=== PATIENT | male | born 1960 | race African-American/Black ===

== ENCOUNTER 2017-03-19 13:58 | Inpatient (IN) | payer OTHER ==
[2017-03-19 15:09] VITALS: BMI 19.8
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
[2017-03-19] MEDS ORDERED: MAG HYDROX/AL HYDROX/SIMETH 30 ML UNIT-DOSE CUP PO PRN (15:57)
[2017-03-19] MEDS ORDERED: ACETAMINOPHEN 325 MG TABLET (FP) PO PRN (15:57)
[2017-03-19] MEDS ORDERED: LOPERAMIDE HCL 2 MG CAPSULE PO PRN (15:57)
[2017-03-19] MEDS ORDERED: diphenhydrAMINE HCL 50 MG CAPSULE PO PRN (15:57)
[2017-03-19] MEDS ORDERED: IBUPROFEN 400 MG TABLET (FP) PO PRN (15:57)
[2017-03-19] MEDS ORDERED: hydrOXYzine PAMOATE 25 MG CAPSULE (FP) PO PRN (15:57)
[2017-03-19] MEDS ORDERED: MENTHOL/PHENOL 1 EACH UD MM PRN (15:57)
[2017-03-19] MEDS ORDERED: guaiFENesin/D-METHORPHAN HB 10 ML UNIT-DOSE CUPS PO PRN (15:57)
[2017-03-19] MEDS ORDERED: chlordiazePOXIDE HCL 25 MG CAPSULE PO PRN (15:57)
[2017-03-19] MEDS ORDERED: P-EPHED 60MG/TRIPROLIDI 2.5MG TABLET PO PRN (15:57)
[2017-03-19] MEDS ORDERED: MAGNESIUM HYDROX 2400MG/30ML ORAL SUSPENSION 30 ML CUP PO PRN (15:57)
[2017-03-19] MEDS ORDERED: NICOTINE POLACRILEX 2 MG GUM BC PRN (15:57)
[2017-03-19] MEDS ORDERED: MAGNESIUM CITRATE 300 ML BOTTLE PO PRN (15:57)
[2017-03-19] MEDS: chlordiazePOXIDE HCL 25 MG CAPSULE PO SCH (21:01)
[2017-03-20] MEDS: THIAMINE HCL 100 MG TABLET (FP) PO SCH (00:16)
[2017-03-20] MEDS: chlordiazePOXIDE HCL 25 MG CAPSULE PO SCH ×3 (00:16→10:48)
[2017-03-20 07:52] LABS: URINE APPEARANCE TURBID; URINE BILIRUBIN NEGATIVE (NEGATIVE); URINE BLOOD NEGATIVE (NEGATIVE); URINE COLOR AMBER; URINE GLUCOSE (UA) NEGATIVE (NEGATIVE); URINE KETONE NEGATIVE (NEGATIVE); URINE LEUK ESTERASE NEGATIVE (NEGATIVE); URINE NITRITE NEGATIVE (NEGATIVE); URINE PROTEIN NEGATIVE (NEGATIVE); URINE UROBILINOGEN NEGATIVE E.U./dl (0.2-1.0)
[2017-03-20 09:46] LABS: MCH 30.3 pg (25.7-33.7); MCHC 33.5 g/dl (32.0-35.9); MEAN CELL VOLUME 90.6 fl (80-96); MEAN PLT VOLUME 8.7 fl (7.5-11.1); PLATELET COUNT 214 K/MM3 (134-434); RDW 13.6 % (11.9-15.9); WHITE BLOOD COUNT 5.9 K/mm3 (4.0-10.0)
[2017-03-20 09:54] LABS: ALBUMIN 3.7 g/dl (3.4-5.0); ALK PHOS 112 U/L (45-117); ANION GAP 6 (8-16); BILIRUBIN,TOTAL 0.4 mg/dL (0.2-1.0); CALCIUM 8.5 mg/dL (8.5-10.1); CO2 33 mmol/L (21-32); CREATININE 1.1 mg/dL (0.7-1.3); GLUCOSE,RANDOM 95 mg/dL (74-106); SGOT/AST 27 U/L (15-37); SGPT/ALT 40 U/L (12-78)
[2017-03-20] MEDS: PRENATAL VITAMINS W/ FOLIC ACID TABLET (FP) PO SCH (10:47)
[2017-03-20] MEDS: NICOTINE 7 MG/24 HOURS TOPICAL PATCH TD SCH (10:47)
--- NOTE | 2017-03-20 12:35 | PN ---
S CIWA - CIWA Score Nausea/Vomitin Muscle Tremors: 2 Anxiety: 3 Agitation: 2 Paroxysmal Sweats: 3 Orientation: 0-Oriented Tacttile Disturbances: 1-Very Mild Itch/Numbness Auditory Disturbances: 0-None Visual Disturbances: 0-None Headache: 0-None Present CIWA-Ar Total Score: 13 S Progress Note (SOAP) Subjective: interrupted sleep, sweats, tired Objective: 03/20/17 12:34 Vital Signs Temperature 97.7 F 03/20/17 06:12 Pulse Rate 57 L 03/20/17 06:12 Respiratory Rate 18 03/20/17 06:12 Blood Pressure 108/65 03/20/17 06:12 O2 Sat by Pulse Oximetry (%) Laboratory Tests 03/19/17 03/20/17 03/20/17 20:30 06:00 06:00 WBC 5.9 RBC 4.09 Hgb 12.4 D Hct 37.1 D MCV 90.6 MCHC 33.5 RDW 13.6 Plt Count 214 MPV 8.7 Sodium 143 Potassium 3.5 D Chloride 104 Carbon Dioxide 33 H Anion Gap 6 L BUN 14 D Creatinine 1.1 Creat Clearance w eGFR > 60 Random Glucose 95 Calcium 8.5 Total Bilirubin 0.4 AST 27 D ALT 40 D Alkaline Phosphatase 112 Total Protein 7.0 Albumin 3.7 Urine Color Olivia Urine Appearance Turbid Urine pH 5.0 D Urine Protein Negative Urine Glucose (UA) Negative Urine Ketones Negative Urine Blood Negative Urine Nitrite Negative Urine Bilirubin Negative Urine Urobilinogen Negative Ur Leukocyte Esterase Negative RPR Titer 03/20/17 06:00 WBC RBC Hgb Hct MCV MCHC RDW Plt Count MPV Sodium Potassium Chloride Carbon Dioxide Anion Gap BUN Creatinine Creat Clearance w eGFR Random Glucose Calcium Total Bilirubin AST ALT Alkaline Phosphatase Total Protein Albumin Urine Color Urine Appearance Urine pH Urine Protein Urine Glucose (UA) Urine Ketones Urine Blood Urine Nitrite Urine Bilirubin Urine Urobilinogen Ur Leukocyte Esterase RPR Titer Nonreactive pt aox3 in nad lying in bed Assessment: 03/20/17 12:35 withdrawal sx's Plan: cont. detox increase fluids
[2017-03-21] MEDS: chlordiazePOXIDE HCL 25 MG CAPSULE PO SCH ×3 (00:04→10:50)
[2017-03-21] MEDS: THIAMINE HCL 100 MG TABLET (FP) PO SCH ×2 (00:04→22:39)
--- NOTE | 2017-03-21 09:34 | PN ---
S CIWA - CIWA Score Nausea/Vomitin-Mild Nausea/No Vomiting Muscle Tremors: 1-None Visible, but [place]y Anxiety: 1-Mildly Anxious Agitation: 2 Paroxysmal Sweats: 2 Orientation: 0-Oriented Tacttile Disturbances: 1-Very Mild Itch/Numbness Auditory Disturbances: 0-None Visual Disturbances: 0-None Headache: 0-None Present CIWA-Ar Total Score: 8 BHS Progress Note (SOAP) Subjective: cold sweats , refusing meds Objective: 03/21/17 09:34 Vital Signs Temperature 97.7 F 03/21/17 06:00 Pulse Rate 53 L 03/21/17 06:00 Respiratory Rate 16 03/21/17 06:00 Blood Pressure 95/53 03/21/17 06:00 O2 Sat by Pulse Oximetry (%) Laboratory Tests 03/19/17 03/20/17 03/20/17 20:30 06:00 06:00 WBC 5.9 RBC 4.09 Hgb 12.4 D Hct 37.1 D MCV 90.6 MCHC 33.5 RDW 13.6 Plt Count 214 MPV 8.7 Sodium 143 Potassium 3.5 D Chloride 104 Carbon Dioxide 33 H Anion Gap 6 L BUN 14 D Creatinine 1.1 Creat Clearance w eGFR > 60 Random Glucose 95 Calcium 8.5 Total Bilirubin 0.4 AST 27 D ALT 40 D Alkaline Phosphatase 112 Total Protein 7.0 Albumin 3.7 Urine Color Olivia Urine Appearance Turbid Urine pH 5.0 D Ur Specific [place] 1.025 Urine Protein Negative Urine Glucose (UA) Negative Urine Ketones Negative Urine Blood Negative Urine Nitrite Negative Urine Bilirubin Negative Urine Urobilinogen Negative Ur Leukocyte Esterase Negative RPR Titer 03/20/17 06:00 WBC RBC Hgb Hct MCV MCHC RDW Plt Count MPV Sodium Potassium Chloride Carbon Dioxide Anion Gap BUN Creatinine Creat Clearance w eGFR Random Glucose Calcium Total Bilirubin AST ALT Alkaline Phosphatase Total Protein Albumin Urine Color Urine Appearance Urine pH Ur Specific [place] Urine Protein Urine Glucose (UA) Urine Ketones Urine Blood Urine Nitrite Urine Bilirubin Urine Urobilinogen Ur Leukocyte Esterase RPR Titer Nonreactive 03/21/17 13:06 pt aox3 in nad , lying in bed Assessment: 03/21/17 09:34 withdrawal sx;s refusing med s- informed that if he did not take meds he could develope withdraw sx;s or sz's 03/21/17 13:07 Plan: cont. detox increase fluids take meds
[2017-03-21] MEDS: PRENATAL VITAMINS W/ FOLIC ACID TABLET (FP) PO SCH (10:50)
[2017-03-21] MEDS: NICOTINE 7 MG/24 HOURS TOPICAL PATCH TD SCH (10:51)
--- NOTE | 2017-03-21 15:53 | EKG ---
Test Reason : Blood Pressure : / mmHG Vent. Rate : 053 BPM Atrial Rate : 053 BPM P-R Int : 154 ms QRS Dur : 080 ms QT Int : 474 ms P-R-T Axes : 072 062 070 degrees QTc Int : 444 ms SINUS BRADYCARDIA OTHERWISE NORMAL ECG NO PREVIOUS ECGS AVAILABLE Confirmed by CARLOS MANUEL REYNOSO MD ([id number]) on 03/21/2017 3:53:00 PM Referred By: Confirmed By:CARLOS MANUEL REYNOSO MD
[2017-03-21] MEDS: chlordiazePOXIDE 5 MG CAPSULE PO SCH ×2 (17:38→22:38)
[2017-03-22] MEDS: chlordiazePOXIDE 5 MG CAPSULE PO SCH ×2 (06:38→10:36)
[2017-03-22] MEDS: NICOTINE 7 MG/24 HOURS TOPICAL PATCH TD SCH (10:36)
[2017-03-22] MEDS: PRENATAL VITAMINS W/ FOLIC ACID TABLET (FP) PO SCH (10:36)
--- NOTE | 2017-03-22 15:46 | PN ---
BHS Progress Note (SOAP) Subjective: Sweating,interrupted sleep,restless Objective: 03/22/17 15:45 Vital Signs - 8 hr 03/22/17 03/22/17 10:00 14:00 Temperature 98.2 F 97.9 F Pulse Rate 63 72 Respiratory 20 20 Rate Blood Pressure 90/56 100/66 Laboratory Tests 03/19/17 03/20/17 03/20/17 20:30 06:00 06:00 WBC 5.9 RBC 4.09 Hgb 12.4 D Hct 37.1 D MCV 90.6 MCHC 33.5 RDW 13.6 Plt Count 214 MPV 8.7 Sodium 143 Potassium 3.5 D Chloride 104 Carbon Dioxide 33 H Anion Gap 6 L BUN 14 D Creatinine 1.1 Creat Clearance w eGFR > 60 Random Glucose 95 Calcium 8.5 Total Bilirubin 0.4 AST 27 D ALT 40 D Alkaline Phosphatase 112 Total Protein 7.0 Albumin 3.7 Urine Color Olivia Urine Appearance Turbid Urine pH 5.0 D Ur Specific [place] 1.025 Urine Protein Negative Urine Glucose (UA) Negative Urine Ketones Negative Urine Blood Negative Urine Nitrite Negative Urine Bilirubin Negative Urine Urobilinogen Negative Ur Leukocyte Esterase Negative RPR Titer 03/20/17 06:00 WBC RBC Hgb Hct MCV MCHC RDW Plt Count MPV Sodium Potassium Chloride Carbon Dioxide Anion Gap BUN Creatinine Creat Clearance w eGFR Random Glucose Calcium Total Bilirubin AST ALT Alkaline Phosphatase Total Protein Albumin Urine Color Urine Appearance Urine pH Ur Specific [place] Urine Protein Urine Glucose (UA) Urine Ketones Urine Blood Urine Nitrite Urine Bilirubin Urine Urobilinogen Ur Leukocyte Esterase RPR Titer Nonreactive labs noted Assessment: 03/22/17 15:45 Withdrawal sx. Plan: Continue detox
[2017-03-22] MEDS: chlordiazePOXIDE HCL 10 MG CAPSULE PO SCH ×2 (18:32→22:13)
[2017-03-22] MEDS: THIAMINE HCL 100 MG TABLET (FP) PO SCH (22:15)
[2017-03-23] MEDS: chlordiazePOXIDE HCL 10 MG CAPSULE PO SCH (05:15)
[2017-03-23 06:12] VITALS: TEMP 98.1
[2017-03-23 06:13] VITALS: BP 125/70; PULSE 54
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
[2017-03-23] MEDS: NICOTINE 7 MG/24 HOURS TOPICAL PATCH TD SCH (09:24)
[2017-03-23] MEDS: PRENATAL VITAMINS W/ FOLIC ACID TABLET (FP) PO SCH (09:24)
== END 2017-03-23 09:45 | disposition home or self-care (01) | DRG 774 ==
LOC: YASAS 13:58 → Y6N 16:22
PROVIDERS: ADMIT Internal Medicine; ATTEND Internal Medicine
PROC: HZ2ZZZZ Detoxification Services for Substance Abuse Treatment (ICD-10-PCS; principal; 2017-03-23)
DX: F10.230 Alcohol dependence with withdrawal, uncomplicated (principal); F14.20 Cocaine dependence, uncomplicated; F17.210 Nicotine dependence, cigarettes, uncomplicated; R63.4 Abnormal weight loss; Z68.1 Body mass index [BMI] 19.9 or less, adult
CPT/HCPCS: 36415; 80053; 81003; 85027; 86593; 93005; 93010

== ENCOUNTER 2019-06-18 10:49 | Inpatient (IN) | payer OTHER ==
[2019-06-18 11:18] VITALS: BMI 19.3
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
[2019-06-18] MEDS ORDERED: MELATONIN 5 MG TABLETS PO PRN (13:33)
[2019-06-18] MEDS ORDERED: MENTHOL/PHENOL 1 EACH UD MM PRN (13:33)
[2019-06-18] MEDS ORDERED: NICOTINE POLACRILEX 2 MG GUM BUC PRN (13:33)
[2019-06-18] MEDS ORDERED: MAGNESIUM CITRATE 300 ML BOTTLE PO PRN (13:33)
[2019-06-18] MEDS ORDERED: MAG HYDROX/AL HYDROX/SIMETH 30 ML UNIT-DOSE CUP PO PRN (13:33)
[2019-06-18] MEDS ORDERED: BISMUTH SUBSALICYLATE 524 MG/30 ML UD PO PRN (13:33)
[2019-06-18] MEDS ORDERED: MAGNESIUM HYDROX 2400MG/30ML ORAL SUSPENSION 30 ML CUP PO PRN (13:33)
[2019-06-18] MEDS ORDERED: hydrOXYzine PAMOATE 25 MG CAPSULE (FP) PO PRN (13:33)
[2019-06-18] MEDS ORDERED: ACETAMINOPHEN 325 MG TABLET (FP) PO PRN ×2 (13:33)
[2019-06-18] MEDS ORDERED: chlordiazePOXIDE HCL 10 MG CAPSULE PO PRN (13:33)
[2019-06-18] MEDS ORDERED: METHOCARBAMOL 500 MG TABLET PO PRN (13:33)
[2019-06-18] MEDS ORDERED: IBUPROFEN 400 MG TABLET (FP) PO PRN (13:33)
[2019-06-18] MEDS: chlordiazePOXIDE HCL 25 MG CAPSULE PO SCH ×2 (16:15→23:03)
[2019-06-18 18:12] LABS: HEMATOCRIT 40.9 % (35.4-49); HEMOGLOBIN 13.4 GM/dL (11.7-16.9); MCH 30.1 pg (25.7-33.7); MCHC 32.8 g/dl (32.0-35.9); MEAN CELL VOLUME 91.9 fl (80-96); MEAN PLT VOLUME 9.3 fl (7.5-11.1); PLATELET COUNT 318 K/MM3 (134-434); RBC 4.45 M/mm3 (4.00-5.60); RDW 13.9 % (11.9-15.9); WHITE BLOOD COUNT 5.7 K/mm3 (4.0-10.0)
[2019-06-18 18:18] LABS: ALBUMIN 3.8 g/dl (3.4-5.0); BILIRUBIN,TOTAL 0.3 mg/dL (0.2-1); BLOOD UREA NITROGEN 10.5 mg/dL (7-18); CALCIUM 9.4 mg/dL (8.5-10.1); CREATININE 0.9 mg/dL (0.55-1.3); POTASSIUM 4.3 mmol/L (3.5-5.1); TOT PROT 7.1 g/dl (6.4-8.2)
[2019-06-18] MEDS: THIAMINE HCL 100 MG TABLET (FP) PO SCH (23:03)
[2019-06-19] MEDS: chlordiazePOXIDE HCL 25 MG CAPSULE PO SCH ×3 (06:43→22:37)
--- NOTE | 2019-06-19 10:40 | PN ---
S CIWA - CIWA Score Nausea/Vomitin Muscle Tremors: 2 Anxiety: 2 Agitation: 2 Paroxysmal Sweats: 1-Minimal Palms Moist Orientation: 0-Oriented Tacttile Disturbances: 1-Very Mild Itch/Numbness Auditory Disturbances: 0-None Visual Disturbances: 0-None Headache: 2-Mild CIWA-Ar Total Score: 12 BHS Progress Note (SOAP) Subjective: alert,irritable,anxious,interrupted sleep,tremor Objective: 06/19/19 10:37 Vital Signs Temperature 97.2 F L 06/19/19 09:41 Pulse Rate 51 L 06/19/19 09:41 Respiratory Rate 18 06/19/19 09:41 Blood Pressure 117/72 06/19/19 09:41 O2 Sat by Pulse Oximetry (%) Laboratory Last Values WBC 5.7 K/mm3 (4.0-10.0) 06/18/19 14:50 RBC 4.45 M/mm3 (4.00-5.60) 06/18/19 14:50 Hgb 13.4 GM/dL (11.7-16.9) 06/18/19 14:50 Hct 40.9 % (35.4-49) 06/18/19 14:50 MCV 91.9 fl (80-96) 06/18/19 14:50 MCH 30.1 pg (25.7-33.7) 06/18/19 14:50 MCHC 32.8 g/dl (32.0-35.9) 06/18/19 14:50 RDW 13.9 % (11.9-15.9) 06/18/19 14:50 Plt Count 318 K/MM3 (134-434) D 06/18/19 14:50 MPV 9.3 fl (7.5-11.1) 06/18/19 14:50 Sodium 139 mmol/L (136-145) 06/18/19 15:20 Potassium 4.3 mmol/L (3.5-5.1) 06/18/19 15:20 Chloride 102 mmol/L (98-107) 06/18/19 15:20 Carbon Dioxide 33 mmol/L (21-32) H 06/18/19 15:20 Anion Gap 4 MMOL/L (8-16) L 06/18/19 15:20 BUN 10.5 mg/dL (7-18) 06/18/19 15:20 Creatinine 0.9 mg/dL (0.55-1.3) 06/18/19 15:20 Est GFR (CKD-EPI)AfAm 107.22 06/18/19 15:20 Est GFR (CKD-EPI)NonAf 92.51 06/18/19 15:20 Random Glucose 79 mg/dL (74-106) 06/18/19 15:20 Calcium 9.4 mg/dL (8.5-10.1) 06/18/19 15:20 Total Bilirubin 0.3 mg/dL (0.2-1) 06/18/19 15:20 AST 22 U/L (15-37) 06/18/19 15:20 ALT 32 U/L (13-61) 06/18/19 15:20 Alkaline Phosphatase 123 U/L (45-117) H 06/18/19 15:20 Total Protein 7.1 g/dl (6.4-8.2) 06/18/19 15:20 Albumin 3.8 g/dl (3.4-5.0) 06/18/19 15:20 RPR Titer Nonreactive (NONREACTIVE) 06/18/19 15:20 Assessment: 06/19/19 10:38 withdrawal symptom Plan: continue detox,librium regimen
[2019-06-19] MEDS: PRENATAL VITAMINS W/ FOLIC ACID TABLET (FP) PO SCH (10:46)
[2019-06-19] MEDS: THIAMINE HCL 100 MG TABLET (FP) PO SCH (22:37)
[2019-06-20] MEDS: chlordiazePOXIDE 5 MG CAPSULE PO SCH ×3 (07:51→23:17)
[2019-06-20] MEDS: PRENATAL VITAMINS W/ FOLIC ACID TABLET (FP) PO SCH (10:26)
--- NOTE | 2019-06-20 10:50 | PN ---
S CIWA - CIWA Score Nausea/Vomitin-No Nausea/No Vomiting Muscle Tremors: None Anxiety: 3 Agitation: 2 Paroxysmal Sweats: 3 Orientation: 0-Oriented Tacttile Disturbances: 0-None Auditory Disturbances: 0-None Visual Disturbances: 0-None Headache: 2-Mild CIWA-Ar Total Score: 10 S Progress Note (SOAP) Subjective: c/o anxiety, sweats, and mild headache. Objective: 06/20/19 10:49 Vital Signs 06/20/19 06/20/19 06/20/19 03:30 06:00 09:34 Temperature 97.5 F L 98.4 F Pulse Rate 53 L 55 L Respiratory 18 18 18 Rate Blood Pressure 100/63 114/64 Lab Results WBC 5.7 K/mm3 (4.0-10.0) 06/18/19 14:50 RBC 4.45 M/mm3 (4.00-5.60) 06/18/19 14:50 Hgb 13.4 GM/dL (11.7-16.9) 06/18/19 14:50 Hct 40.9 % (35.4-49) 06/18/19 14:50 MCV 91.9 fl (80-96) 06/18/19 14:50 MCHC 32.8 g/dl (32.0-35.9) 06/18/19 14:50 RDW 13.9 % (11.9-15.9) 06/18/19 14:50 Plt Count 318 K/MM3 (134-434) D 06/18/19 14:50 Sodium 139 mmol/L (136-145) 06/18/19 15:20 Potassium 4.3 mmol/L (3.5-5.1) 06/18/19 15:20 Chloride 102 mmol/L (98-107) 06/18/19 15:20 Carbon Dioxide 33 mmol/L (21-32) H 06/18/19 15:20 Anion Gap 4 MMOL/L (8-16) L 06/18/19 15:20 BUN 10.5 mg/dL (7-18) 06/18/19 15:20 Creatinine 0.9 mg/dL (0.55-1.3) 06/18/19 15:20 Random Glucose 79 mg/dL (74-106) 09/19/19 15:20 Calcium 9.4 mg/dL (8.5-10.1) 06/18/19 15:20 Labs noted. Assessment: 06/20/19 10:49 AOX3, in no acute distress. Full ROM, ambulating in the unit. Withdrawal symptoms. Plan: continue detox.
[2019-06-20] MEDS: THIAMINE HCL 100 MG TABLET (FP) PO SCH (23:17)
[2019-06-21] MEDS ORDERED: chlordiazePOXIDE HCL 10 MG CAPSULE PO PRN
[2019-06-21] MEDS: chlordiazePOXIDE HCL 10 MG CAPSULE PO SCH ×3 (07:55→21:16)
[2019-06-21] MEDS: PRENATAL VITAMINS W/ FOLIC ACID TABLET (FP) PO SCH (12:01)
--- NOTE | 2019-06-21 14:07 | PN ---
S CIWA - CIWA Score Nausea/Vomitin-No Nausea/No Vomiting Muscle Tremors: None Anxiety: 3 Agitation: 1-Slight > Activity Paroxysmal Sweats: 2 Orientation: 0-Oriented Tacttile Disturbances: 0-None Auditory Disturbances: 0-None Visual Disturbances: 0-None Headache: 0-None Present CIWA-Ar Total Score: 6 BHS Progress Note (SOAP) Subjective: Interrupted sleep Objective: 06/21/19 14:06 Last Vital Signs Temp Pulse Resp BP Pulse Ox 98.1 F 64 18 118/67 06/21/19 13:15 06/21/19 13:15 06/21/19 13:15 06/21/19 13:15 Laboratory Tests 06/18/19 06/18/19 06/18/19 14:50 15:20 15:20 WBC 5.7 RBC 4.45 Hgb 13.4 Hct 40.9 MCV 91.9 MCH 30.1 MCHC 32.8 RDW 13.9 Plt Count 318 D MPV 9.3 Sodium 139 Potassium 4.3 Chloride 102 Carbon Dioxide 33 H Anion Gap 4 L BUN 10.5 Creatinine 0.9 Est GFR (CKD-EPI)AfAm 107.22 Est GFR (CKD-EPI)NonAf 92.51 Random Glucose 79 Calcium 9.4 Total Bilirubin 0.3 AST 22 ALT 32 Alkaline Phosphatase 123 H Total Protein 7.1 Albumin 3.8 RPR Titer Nonreactive Labs reviewed Assessment: 06/21/19 14:07 Withdrawal sxs Plan: Continue detox Encouraged PO water intake
[2019-06-21] MEDS: THIAMINE HCL 100 MG TABLET (FP) PO SCH (22:16)
[2019-06-22] MEDS ORDERED: chlordiazePOXIDE HCL 10 MG CAPSULE PO ONE (05:00)
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
[2019-06-22] MEDS: PRENATAL VITAMINS W/ FOLIC ACID TABLET (FP) PO SCH (10:44)
[2019-06-22 14:48] VITALS: BP 103/70; PULSE 64; TEMP 98.2
== END 2019-06-22 15:20 | disposition other institution (70) | DRG 774 ==
LOC: YASAS 10:49 → Y6N 15:01
PROVIDERS: ADMIT Surgery; ATTEND Surgery
PROC: HZ2ZZZZ Detoxification Services for Substance Abuse Treatment (ICD-10-PCS; principal; 2019-06-18)
DX: F10.230 Alcohol dependence with withdrawal, uncomplicated (principal); F14.20 Cocaine dependence, uncomplicated; F12.20 Cannabis dependence, uncomplicated; F17.210 Nicotine dependence, cigarettes, uncomplicated; Z88.0 Allergy status to penicillin; Z91.018 Allergy to other foods
CPT/HCPCS: 36415; 80053; 85027; 86593

== ENCOUNTER 2019-06-22 15:27 | Inpatient (IN) | payer OTHER ==
--- NOTE | 2019-06-22 19:17 | HP ---
[facility] Rehab Assess/Revision - Admission History Admitted to Rehab from: [facility] Date of Admission to Rehab: 06/22/2019 - Vital signs Vital Signs: Vital Signs Period Temp Pulse Resp BP Sys/Ho Pulse Ox Last 24 Hr 97.9 F 71 18 102/70 - Findings Detox History & Physical reviewed: Yes Concur with findings: Yes Comments/Additional Findings: PMHx: Anginal episodes (w/o [place]). Hx Alcohol, Cannabis, and Cocaine use disorder. Tolerated alcohol detox and is now in early remission. Inpatient Rehab Admission - Rehab Decision to Admit Inpatient rehab admission?: Yes - Initial Determination Are CD services needed?: Yes Free of communicable disease: Yes Not in need of hospitalization: Yes - Rehab Admission Criteria Previous failed treatment: Yes Poor recovery environment: Yes Comorbidities: Yes Lacks judgement: No Patient is meeting Inpatient Rehab admission criteria:: Yes
--- NOTE | 2019-06-22 19:18 | PN ---
[facility] Progress Note Note: Patient states he fell and injured the back of his (R) leg in thigh area. Denies hitting head. States fell because he forgot to use his cane. States pain is a "5" and sharp when rubs leg. Patient refuses to go to ED. Vital Signs 06/22/19 06/22/19 06/22/19 18:42 19:28 21:30 Temperature 97.9 F 97.9 F 97.8 F Pulse Rate 71 71 67 Respiratory 18 18 18 Rate Blood Pressure 102/70 102/70 122/60 06/22/19 22:39 Temperature 98.5 F Pulse Rate 65 Respiratory 18 Rate Blood Pressure 105/59 L Tenderness (R) hamstring area w/ palpitation. No increased redness or erythema. FROM of leg at hip and knee. FWB. Plan: Fall Protocol 1 (Patient refused to go to ED despite encouragement) Ice to leg area for 20 minutes Q2-4H prn . Stressed the importance of using cane (Patient verbalized an understanding) Ibuprofen for pain management.
[2019-06-22] MEDS ORDERED: MELATONIN 5 MG TABLETS PO PRN (22:00)
[2019-06-22] MEDS ORDERED: P-EPHED 60MG/TRIPROLIDI 2.5MG TABLET PO PRN (23:52)
[2019-06-22] MEDS ORDERED: MAGNESIUM CITRATE 300 ML BOTTLE PO PRN (23:52)
[2019-06-22] MEDS ORDERED: MAGNESIUM HYDROX 2400MG/30ML ORAL SUSPENSION 30 ML CUP PO PRN (23:52)
[2019-06-22] MEDS ORDERED: guaiFENesin 200 MG/10 ML 10 ML UNIT-DOSE CUPS PO PRN (23:52)
[2019-06-22] MEDS ORDERED: hydrOXYzine PAMOATE 25 MG CAPSULE (FP) PO PRN (23:52)
[2019-06-22] MEDS ORDERED: MAG HYDROX/AL HYDROX/SIMETH 30 ML UNIT-DOSE CUP PO PRN (23:52)
[2019-06-22] MEDS ORDERED: LOPERAMIDE HCL 2 MG CAPSULE PO PRN (23:52)
[2019-06-22] MEDS ORDERED: MENTHOL/PHENOL 1 EACH UD MM PRN (23:52)
[2019-06-22] MEDS ORDERED: NICOTINE POLACRILEX 2 MG GUM BUC PRN (23:55)
[2019-06-23] MEDS: IBUPROFEN 400 MG TABLET (FP) PO PRN ×3 (01:22→19:26)
[2019-06-23] MEDS: PRENATAL VITAMINS W/ FOLIC ACID TABLET (FP) PO SCH (10:23)
[2019-06-23] MEDS: NICOTINE 7 MG/24 HOURS TOPICAL PATCH TD SCH (10:24)
[2019-06-23] MEDS: THIAMINE HCL 100 MG TABLET (FP) PO SCH (21:51)
[2019-06-23] MEDS: ACETAMINOPHEN 325 MG TABLET (FP) PO PRN (21:52)
[2019-06-24 06:49] VITALS: BP 109/68; PULSE 61; TEMP 98
[2019-06-24] MEDS: NICOTINE 7 MG/24 HOURS TOPICAL PATCH TD SCH (10:49)
[2019-06-24] MEDS: PRENATAL VITAMINS W/ FOLIC ACID TABLET (FP) PO SCH (10:49)
[2019-06-24] MEDS: ACETAMINOPHEN 325 MG TABLET (FP) PO PRN (19:51)
[2019-06-24] MEDS: THIAMINE HCL 100 MG TABLET (FP) PO SCH (21:14)
--- NOTE | 2019-06-24 21:33 | DS ---
[facility] Rehab Discharge Summary - [facility] Rehab Discharge Summary Admission Date: 06/22/19 Discharge Date: 06/24/19 - History Present History: Alcohol dependence, Cannabis dependence, Cocaine dependence Additional Comments: Patient was admitted to rehab in early alcohol remission after detox. Pertinent Past History: PMHx: Anginal episodes (w/o [place]). Hx Alcohol, Cannabis, and Cocaine use disorder. - Discharge Physical Exam Vital Signs: Vital Signs Temperature 98 F 06/24/19 06:49 Pulse Rate 61 06/24/19 06:49 Respiratory Rate 18 06/24/19 06:49 Blood Pressure 109/68 06/24/19 06:49 O2 Sat by Pulse Oximetry (%) Pertinent Admission Physical Exam Findings: Patient was admitted to rehab in early alcohol remission after detox in stable condition. - Treatment Discharge Condition: Discharge condition good (Patient alert, ambulatory, using cane w/ a steady gait. No tremors. Patient declined outpatient referals. Patient encouraged to f/u in ED and w/ PCP. Encouraged community support groups. Patient declined NRT.) Hospital Course: Patient in rehab for 2 days. c/o injury to (R)) upper leg area after fall (said forgot to use cane). Unwitnessed rectal bleed. - Medication Discharge Medications: Ambulatory Orders NK [No Known Home Medication] 03/19/17 - Medication-Assisted Treatment (MAT) Medication-Assisted Treatment (MAT): No - Discharge Instructions Diet, activity, other medical instructions: Diet: Regular Activity: Ad teri, w/ use of cane Other medical instructions: Encouraged to f/u w/ community ED and w/ PCP as soon as possible. - Follow-up Referral Minutes to complete discharge: 20 - AMA Did Patient Leave Against Medical Advice: Yes
--- NOTE | 2019-06-24 22:00 | PN ---
[facility] Progress Note Note: Patient insistent upon leaving to go home tonight. States had some blood in stool when had a BM earlier, around lunch time, and wants to see his own Dr. for f/u. No rectal bleeding at this time. Denies urge for alcoholic beverage. Patient abd S/NT/BS+. Refused rectal exam. Ambulatory w/ cane - gait steady. Vital Signs - 24 hr 06/24/19 06/24/19 06/24/19 00:30 03:30 06:49 Temperature 98 F Pulse Rate 61 Respiratory 18 18 18 Rate Blood Pressure 109/68 Plan: Patient declined going to [facility] ED for evaluation of c/o rectal bleed. Encouraged alcohol patch and gum, but refused both. States not interested in smoking cessation. Denies current home medications. Encouraged f/u in home ED and/or PCP. Discharged AMA.
== END 2019-06-24 22:30 | disposition left against medical advice (07) | DRG 770 ==
LOC: YASAS 15:27 → Y3W 15:28
PROVIDERS: ADMIT Neuromusculoskeletal Medicine & OMM; ATTEND Neuromusculoskeletal Medicine & OMM
PROC: HZ42ZZZ Group Counseling for Substance Abuse Treatment, Cognitive-Behavioral (ICD-10-PCS; principal; 2019-06-22)
DX: F10.20 Alcohol dependence, uncomplicated (principal); F14.20 Cocaine dependence, uncomplicated; F12.20 Cannabis dependence, uncomplicated; S79.921A Unspecified injury of right thigh, initial encounter; W19.XXXA Unspecified fall, initial encounter; Y93.9 Activity, unspecified; Y92.239 Unspecified place in hospital as the place of occurrence of the external cause

== ENCOUNTER 2022-12-31 14:48 | Inpatient (IN) | payer OTHER ==
[2022-12-31 14:57] VITALS: BMI 20.7
[2022-12-31] MEDS ORDERED: LOPERAMIDE HCL 2 MG CAPSULE PO PRN (15:30)
[2022-12-31] MEDS ORDERED: IBUPROFEN 600 MG TABLET (FP) PO PRN (15:30)
[2022-12-31] MEDS ORDERED: MAGNESIUM HYDROX 2400MG/30ML ORAL SUSPENSION 30 ML CUP PO PRN (15:30)
[2022-12-31] MEDS ORDERED: IBUPROFEN 400 MG TABLET (FP) PO PRN (15:30)
[2022-12-31] MEDS ORDERED: BENZOCAINE/MENTHOL (CHLORASEPTIC ) LOZENGE MM PRN (15:30)
[2022-12-31] MEDS ORDERED: hydrOXYzine PAMOATE 25 MG CAPSULE (FP) PO PRN (15:30)
[2022-12-31] MEDS ORDERED: BENZONATATE 200 MG CAPSULE PO PRN (15:30)
[2022-12-31] MEDS ORDERED: POLYETHYLENE GLYCOL (HEALTHYLAX) 3350 17 GM PACKET PO PRN (15:30)
[2022-12-31] MEDS ORDERED: NALOXONE HCL 0.4 MG/ML VIAL IM PRN (15:30)
[2022-12-31] MEDS ORDERED: MAG HYDROX/AL HYDROX/SIMETH 30 ML UNIT-DOSE CUP PO PRN (15:30)
[2022-12-31] MEDS ORDERED: guaiFENesin 600 MG TABLET.ER (FP) PO PRN (15:30)
[2022-12-31] MEDS ORDERED: NICOTINE 10 MG CARTRIDGE (INHALER) IH PRN (15:30)
[2022-12-31] MEDS ORDERED: NALOXONE HCL (KLOXXADO) 8 MG SPRAY NS PRN (15:30)
[2022-12-31] MEDS: MELATONIN 5 MG TABLETS PO SCH (21:25)
[2022-12-31] MEDS: THIAMINE HCL 100 MG TABLET (FP) PO SCH (21:25)
[2023-01-01] MEDS: PRENATAL VITAMINS W/ FOLIC ACID TABLET (FP) PO SCH (09:50)
[2023-01-01 15:11] LABS: HEMATOCRIT 36.8 % (35.4-49); HEMOGLOBIN 12.1 GM/dL (11.7-16.9); MCH 29.8 pg (25.7-33.7); MCHC 32.9 g/dl (32.0-35.9); MEAN CELL VOLUME 90.4 fl (80-96); MEAN PLT VOLUME 9.1 fl (7.5-11.1); PLATELET COUNT 170 10^3/uL (134-434); RBC 4.08 M/mm3 (4.00-5.60); RDW 13.9 % (11.9-15.9); WHITE BLOOD COUNT 3.8 K/mm3 (4.0-10.0)
[2023-01-01 15:17] LABS: PH,URINE 5.5 (5.0-8.0); URINE APPEARANCE CLEAR; URINE BILIRUBIN NEGATIVE (NEGATIVE); URINE COLOR YELLOW; URINE GLUCOSE (UA) NEGATIVE (NEGATIVE); URINE KETONE NEGATIVE (NEGATIVE); URINE LEUK ESTERASE NEGATIVE (NEGATIVE); URINE NITRITE NEGATIVE (NEGATIVE); URINE PROTEIN NEGATIVE (NEGATIVE)
[2023-01-01 15:36] LABS: ALBUMIN 3.2 g/dl (3.4-5.0)
[2023-01-01 15:37] LABS: BLOOD UREA NITROGEN 9.8 mg/dL (7-18)
[2023-01-01 15:41] LABS: BILIRUBIN,TOTAL 0.3 mg/dL (0.2-1); TOT PROT 5.8 g/dl (6.4-8.2)
[2023-01-01 16:03] LABS: SYPHILIS W/ RPR CONF NON-REACTIVE (NONREACTIVE)
[2023-01-01] MEDS: MELATONIN 5 MG TABLETS PO SCH (22:55)
[2023-01-01] MEDS: THIAMINE HCL 100 MG TABLET (FP) PO SCH (22:55)
[2023-01-02] MEDS: PRENATAL VITAMINS W/ FOLIC ACID TABLET (FP) PO SCH (10:20)
[2023-01-02] MEDS: MELATONIN 5 MG TABLETS PO SCH (21:36)
[2023-01-02] MEDS: THIAMINE HCL 100 MG TABLET (FP) PO SCH (21:36)
[2023-01-03] MEDS: PRENATAL VITAMINS W/ FOLIC ACID TABLET (FP) PO SCH (11:59)
[2023-01-03] MEDS: MELATONIN 5 MG TABLETS PO SCH (21:23)
[2023-01-03] MEDS: THIAMINE HCL 100 MG TABLET (FP) PO SCH (21:23)
[2023-01-03] MEDS: ACETAMINOPHEN 325 MG TABLET (FP) PO PRN (22:55)
[2023-01-04] MEDS: PRENATAL VITAMINS W/ FOLIC ACID TABLET (FP) PO SCH (10:10)
[2023-01-04] MEDS: ACETAMINOPHEN 325 MG TABLET (FP) PO PRN ×2 (13:39→21:30)
[2023-01-04] MEDS ORDERED: DOCUSATE SODIUM 100 MG CAPSULE (FP) PO PRN (14:32)
[2023-01-04] MEDS: THIAMINE HCL 100 MG TABLET (FP) PO SCH (21:22)
[2023-01-04] MEDS: MELATONIN 5 MG TABLETS PO SCH (21:22)
[2023-01-05] MEDS: PRENATAL VITAMINS W/ FOLIC ACID TABLET (FP) PO SCH (10:10)
[2023-01-05] MEDS: THIAMINE HCL 100 MG TABLET (FP) PO SCH (21:53)
[2023-01-05] MEDS: MELATONIN 5 MG TABLETS PO SCH (21:53)
[2023-01-06] MEDS: PRENATAL VITAMINS W/ FOLIC ACID TABLET (FP) PO SCH (10:15)
[2023-01-06] MEDS: ACETAMINOPHEN 325 MG TABLET (FP) PO PRN (12:41)
[2023-01-06] MEDS: THIAMINE HCL 100 MG TABLET (FP) PO SCH (22:00)
[2023-01-06] MEDS: MELATONIN 5 MG TABLETS PO SCH (22:00)
[2023-01-07] MEDS: ACETAMINOPHEN 325 MG TABLET (FP) PO PRN (09:05)
[2023-01-07] MEDS: PRENATAL VITAMINS W/ FOLIC ACID TABLET (FP) PO SCH (09:06)
[2023-01-07] MEDS: THIAMINE HCL 100 MG TABLET (FP) PO SCH (23:25)
[2023-01-07] MEDS: MELATONIN 5 MG TABLETS PO SCH (23:25)
[2023-01-08] MEDS: PRENATAL VITAMINS W/ FOLIC ACID TABLET (FP) PO SCH (10:05)
[2023-01-08] MEDS: ACETAMINOPHEN 325 MG TABLET (FP) PO PRN (11:17)
[2023-01-08] MEDS ORDERED: PRENATAL VITAMINS W/ FOLIC ACID TABLET (FP) PO PRN (15:52)
[2023-01-08] MEDS: THIAMINE HCL 100 MG TABLET (FP) PO SCH (21:33)
[2023-01-08] MEDS: MELATONIN 5 MG TABLETS PO SCH (21:33)
[2023-01-09] MEDS: MELATONIN 5 MG TABLETS PO SCH (22:11)
[2023-01-09] MEDS: THIAMINE HCL 100 MG TABLET (FP) PO SCH (22:11)
[2023-01-09] MEDS: ACETAMINOPHEN 325 MG TABLET (FP) PO PRN (23:09)
[2023-01-10 07:34] VITALS: BP 117/62; PULSE 63; RESP 18; TEMP 98.3
== END 2023-01-10 09:27 | disposition home or self-care (01) | DRG 772 ==
LOC: YASAS 14:48 → Y3E 19:13 → MERGE 19:13 → Y3E 01-03 09:55
PROVIDERS: ADMIT Psychiatry & Neurology Pain Medicine; ATTEND Allergy & Immunology
PROC: HZ42ZZZ Group Counseling for Substance Abuse Treatment, Cognitive-Behavioral (ICD-10-PCS; principal; 2022-12-31)
DX: F14.20 Cocaine dependence, uncomplicated (principal); F13.20 Sedative, hypnotic or anxiolytic dependence, uncomplicated; F12.20 Cannabis dependence, uncomplicated; F17.210 Nicotine dependence, cigarettes, uncomplicated; Z99.89 Dependence on other enabling machines and devices; Z88.0 Allergy status to penicillin
CPT/HCPCS: 36415; 80053; 81003; 85027; 86780; 86803; 93005; 93010; C9803-CS; U0003; U0005